=== PATIENT | male | born 1990 | race African-American/Black ===

== ENCOUNTER 2017-10-02 19:01 | Emergency (ER) | payer SELFPAY ==
[~2017-10-02] VITALS: Ht 182.9 cm; Wt 75.0 kg
[2017-10-02 19:19] VITALS: BP 123/69; PULSE 63; RESP 18; TEMP 98; O2SAT 99
--- NOTE | 2017-10-02 20:35 | PD ---
HPI Chief Complaint: ENT Complaint Time Seen by Provider: 20:27 Travel History International Travel<30 days: No Contact w/Intl Traveler<30days: No Traveled to known affect area: No History of Present Illness HPI This patient complains of left ear pain. Duration 2 days. Severity is moderate. No fever. Denies runny nose cough or congestion. No alleviating factors. PFSH Past Medical History Medical History: Denies Significant Hx Immunizations Current: Yes Tetanus Vaccination: Unknown Influenza Vaccination: No Past Surgical History Surgical History: No Previous Surgery Social History Alcohol Use: Yes Tobacco Use: No Substance Use: No Allergies-Medications (Allergen,Severity, Reaction): Coded Allergies: No Known Allergies (Unverified , 10/02/17) Reported Meds & Prescriptions Reported Meds & Active Scripts Active No Active Prescriptions or Reported Medications Review of Systems General / Constitutional: No: Fever Cardiovascular: No: Chest Pain or Discomfort Respiratory: No: Cough Gastrointestinal: No: Vomiting Physical Exam Narrative NECK: Symmetrical appearance, midline trachea. No mass or crepitus. Thyroid without enlargement, tenderness, or mass. Throat clear SKIN: Focused skin assessment reveals no rash or ulcers. Skin is warm and dry. Palpation shows no induration or nodules. Left TM is not visible due to cerumen impaction After flushing, I reevaluated. I do not see evidence of bacterial infection. Ear canal looks normal. No mastoid tenderness Data Data Last Documented VS Vital Signs Date Time Temp Pulse Resp B/P (MAP) Pulse Ox O2 Delivery O2 Flow Rate FiO2 10/02/17 19:19 98.0 63 18 123/69 (87) 99 Orders Orders Ed Discharge Order (10/02/17 21:17) MDM Medical Decision Making Medical Screen Exam Complete: Yes Emergency Medical Condition: Yes Medical Record Reviewed: Yes Differential Diagnosis Otitis media, otitis externa, foreign body Narrative Course I have reviewed the patient's electronic medical record. I do not see any evidence of bacterial infection. Supportive care discussed. Recommend primary care follow-up. Discussed [id number] earwax reduction strategies Diagnosis Primary Impression: Pain in left ear Additional Impression: Obstruction of ventilation tube of left ear by cerumen Additional Instructions: The patient was advised to follow up with their physician and return if they worsen. Med/Other Pt SpecificInfo: Other Scripts No Active Prescriptions or Reported Meds Disposition: 01 DISCHARGE HOME Condition: Stable Kocisko,Mike J. MD October 02, 2017 20:35
== END 2017-10-02 21:34 | disposition home or self-care (01) ==
LOC: NEPD 19:01
DX: H92.02 Otalgia, left ear (principal); H61.22 Impacted cerumen, left ear
CPT/HCPCS: 99282